=== PATIENT | male | born 1980 | race Caucasian/White ===

== ENCOUNTER 2018-03-07 10:10 | Emergency (ER) | payer BC ==
[~2018-03-07] VITALS: Ht 182.9 cm; Wt 93.2 kg
[2018-03-07] MEDS ORDERED: IBUP1TAB6 PO (10:18)
[2018-03-07] MEDS ORDERED: ACET500T15 PO (10:18)
[2018-03-07] MEDS ORDERED: KETOROLAC 60 MG/2 ML VIAL (J1885) As Ordered ONE (11:15)
[2018-03-07] MEDS ORDERED: KETOROLAC 60 MG/2 ML VIAL (J1885) IM ONE (11:15)
--- NOTE | 2018-03-07 11:19 | REP ---
Clinical: Midline back pain after heavy lifting . Technique: AP, lateral, bilateral oblique, and coned-down views. Findings: Alignment and lordosis is maintained. The vertebral bodies including transverse process and spinous processes are intact and normal. There is no evidence for acute fracture / compression injury or subluxation. No evidence for spondylolysis or spondylolisthesis. No significant degenerative change is noted. Impression: Normal age-appropriate lumbosacral spine radiograph series. Electronically Signed by Ritchie Pinzon MD 03/07/2018 11:10 A
[2018-03-07 11:39] VITALS: BP 135/76
[2018-03-07] MEDS ORDERED: ROBA500T PO (11:39)
== END 2018-03-07 11:47 | disposition home or self-care (01) ==
LOC: M ED 10:10
DX: M54.5 Low back pain (principal); X50.0XXA Overexertion from strenuous movement or load, initial encounter; Y92.9 Unspecified place or not applicable
CPT/HCPCS: 72110; 99283; J1885

== ENCOUNTER 2018-12-18 07:32 | Emergency (ER) | payer BC, OTHER ==
[~2018-12-18] VITALS: Ht 182.9 cm; Wt 89.5 kg
[~2018-12-18 07:32] MED LIST: ACET500T15 PO; IBUP1TAB6 PO; ROBA500T PO
[2018-12-18] MEDS ORDERED: NS 1,000 ML IV ONE (08:15)
[2018-12-18] MEDS ORDERED: KETOROLAC 30 MG/ML VIAL (J1885) IV ONE (08:15)
[2018-12-18] MEDS ORDERED: ONDANSETRON 4MG/2ML VIAL (J2405) IV ONE (08:15)
[2018-12-18 08:22] LABS: BASO # 0.1 10^3/uL (0.0-0.2); BASO % 0.9 % (0.0-1.0); EOS # 0.5 10^3/uL (0.0-0.5); EOS % 8.9 % (0.0-3.0); HEMATOCRIT 44.6 % (42.0-52.0); HEMOGLOBIN 15.7 g/dl (13.5-17.5); LYMPH # 1.8 10^3/uL (1.5-5.0); LYMPH % 33.1 % (24.0-44.0); MEAN CORPUSCULAR HEMOGLOBIN 32.5 pg (27.0-33.0); MEAN CORPUSCULAR HGB CONC 35.2 g/dl (32.0-36.5); MEAN CORPUSCULAR VOLUME 92.3 fl (80.0-96.0); MONO # 0.4 10^3/uL (0.0-0.8); MONO % 6.5 % (0.0-5.0); NEUTROPHILS # 2.7 10^3/uL (1.5-8.5); NEUTROPHILS % 50.4 % (36.0-66.0); PLATELET COUNT, AUTOMATED 203 10^3/uL (150-450); RED BLOOD COUNT 4.83 10^6/uL (4.30-6.10); WHITE BLOOD COUNT 5.4 10^3/uL (4.0-10.0)
[2018-12-18 08:48] LABS: ALBUMIN 3.9 GM/DL (3.2-5.2); ALT/SGPT 36 U/L (12-78); BILIRUBIN,DIRECT < 0.1 MG/DL (0.0-0.2); BILIRUBIN,TOTAL 0.3 MG/DL (0.2-1.0); BLOOD UREA NITROGEN 13 MG/DL (7-18); CALCIUM LEVEL 9.2 MG/DL (8.5-10.1); CARBON DIOXIDE LEVEL 27 MEQ/L (21-32); CHLORIDE LEVEL 110 MEQ/L (98-107); CREATININE FOR GFR 0.88 MG/DL (0.70-1.30); GLOMERULAR FILTRATION RATE > 60.0 (>60); GLUCOSE, FASTING 100 MG/DL (70-100); LIPASE 351 U/L (73-393); POTASSIUM SERUM 4.4 MEQ/L (3.5-5.1); SODIUM LEVEL 142 MEQ/L (136-145); TOTAL PROTEIN 6.9 GM/DL (6.4-8.2)
--- NOTE | 2018-12-18 08:53 | REP ---
CT abdomen and pelvis without IV or oral contrast: History: Left flank pain rule out urolithiasis. CT findings: Digital preliminary wildlife removal specialist radiograph is unremarkable. The lung bases are clear there is no evidence of pleural effusion or upper abdominal ascites. The liver and the spleen are normal in size homogeneous in texture. The gallbladder and the pancreas are unremarkable. No adrenal lesion is seen on either side. There is no evidence of hydronephrosis. Kidneys are morphologically intact. No intrarenal calculus is seen. No ureteral or bladder calculus is observed. There is some mild diverticulosis in the sigmoid colon without CT evidence of diverticulitis. Small and large intestinal bowel loops are otherwise unremarkable. Seminal vesicles, prostate, and urinary bladder appear normal. A normal appendix is visible in the right lower quadrant. Bone window settings show no bony destructive lesion. Impression: Unremarkable CT abdomen and pelvis. No urinary tract calculus or hydronephrosis seen. Normal appendix noted. Left colonic diverticulosis without evidence of diverticulitis. Electronically Signed by Cyrus Thornton MD 12/18/2018 09:45 A
[2018-12-18 09:55] VITALS: BP 112/79
== END 2018-12-18 09:57 | disposition home or self-care (01) ==
LOC: M ED 07:32
DX: R10.9 Unspecified abdominal pain (principal); Z87.442 Personal history of urinary calculi; F17.218 Nicotine dependence, cigarettes, with other nicotine-induced disorders; Z88.8 Allergy status to other drugs, medicaments and biological substances
CPT/HCPCS: 36415; 74176; 80048; 80076; 81001; 83690; 85025; 96374; 96375; 99284; J1885; J2405

== ENCOUNTER → 2019-01-15 | Outpatient (CLI) | payer OTHER ==
--- NOTE | 2019-01-15 16:55 | REP ---
Five views lumbar spine: 01/15/2019. Indication: Lumbar spine trauma. Comparison: 03/07/2018. Findings: There is no acute fracture, subluxation or dislocation. Disc space height is maintained throughout. Impression: There is no evidence of acute osseous lumbar spine injury. Electronically Signed by James Mckeon DO 01/15/2019 04:47 P
== END ==
LOC: M WUC 16:08
PROVIDERS: ATTEND Physician Assistant
DX: M54.41 Lumbago with sciatica, right side (principal)

== ENCOUNTER → 2019-03-26 | Outpatient (REF) | payer OTHER ==
[2019-03-26 14:19] LABS: BASO # 0.1 10^3/uL (0.0-0.2); BASO % 1.2 % (0.0-1.0); EOS # 0.3 10^3/uL (0.0-0.5); EOS % 5.2 % (0.0-3.0); HEMOGLOBIN 16.1 g/dl (13.5-17.5); LYMPH # 1.9 10^3/uL (1.5-5.0); LYMPH % 31.3 % (24.0-44.0); MEAN CORPUSCULAR HEMOGLOBIN 31.9 pg (27.0-33.0); MEAN CORPUSCULAR HGB CONC 34.3 g/dl (32.0-36.5); MEAN CORPUSCULAR VOLUME 93.3 fl (80.0-96.0); MONO # 0.4 10^3/uL (0.0-0.8); MONO % 6.7 % (0.0-5.0); NEUTROPHILS # 3.3 10^3/uL (1.5-8.5); NEUTROPHILS % 55.4 % (36.0-66.0); PLATELET COUNT, AUTOMATED 236 10^3/uL (150-450); RED BLOOD COUNT 5.04 10^6/uL (4.30-6.10)
[2019-03-26 14:34] LABS: ALBUMIN 4.4 GM/DL (3.2-5.2); ALT/SGPT 30 U/L (12-78); BILIRUBIN,TOTAL 0.4 MG/DL (0.2-1.0); BLOOD UREA NITROGEN 22 MG/DL (7-18); CALCIUM LEVEL 9.2 MG/DL (8.5-10.1); CARBON DIOXIDE LEVEL 28 MEQ/L (21-32); CHLORIDE LEVEL 107 MEQ/L (98-107); CHOLESTEROL LEVEL 207 MG/DL (<200); CHOLESTEROL RISK RATIO 4.928 (<5); CREATININE FOR GFR 0.88 MG/DL (0.70-1.30); FREE T4 0.78 NG/DL (0.76-1.46); GLOMERULAR FILTRATION RATE > 60.0 (>60); GLUCOSE, FASTING 78 MG/DL (70-100); HDL CHOLESTEROL 42 MG/DL (>40); LDL CHOLESTEROL 142 MG/DL (<100); NON-HDL-C 165 MG/DL; POTASSIUM SERUM 4.6 MEQ/L (3.5-5.1); SODIUM LEVEL 139 MEQ/L (136-145); THYROID STIMULATING HORMONE 0.448 uIU/ML (0.358-3.740); TOTAL PROTEIN 7.5 GM/DL (6.4-8.2); TRIGLYCERIDES LEVEL 115 MG/DL (<150)
[2019-03-26 14:36] LABS: TOTAL 25(OH) VITAMIN D 27.5 NG/ML (30.0-100.0)
== END ==
LOC: M SFHCSACK 08:37
PROVIDERS: ATTEND Physician Assistant
DX: Z13.21 Encounter for screening for nutritional disorder (principal); K04.7 Periapical abscess without sinus; Z83.438 Family history of other disorder of lipoprotein metabolism and other lipidemia; Z80.8 Family history of malignant neoplasm of other organs or systems

== ENCOUNTER → 2019-04-03 | Outpatient (CLI) | payer OTHER ==
--- NOTE | 2019-04-04 06:53 | REP ---
Clinical: Palpable mass. Technique: Real time barboza scale and color evaluation using linear high frequency transducer. Findings: Directed ultrasound examination along the posterior aspect of the left calf demonstrates a hypoechoic ovoid avascular lesion measuring 12 x 13 x 5 mm which is otherwise nonspecific in appearance. Lesion appears relatively benign and may reflect prominent lymph node or granuloma. Correlation with history of prior trauma or infectious process should be considered. Impression: Nonspecific ovoid hypoechoic lesion at the site of palpable mass. Electronically Signed by Ritchie Pinzon MD 04/04/2019 06:45 A
== END ==
LOC: M RAD 16:44
PROVIDERS: ATTEND Physician Assistant
DX: R22.42 Localized swelling, mass and lump, left lower limb (principal)

== ENCOUNTER 2019-07-23 11:44 | Emergency (ER) | payer OTHER ==
[~2019-07-23] VITALS: Ht 182.9 cm; Wt 88.7 kg
[~2019-07-23 11:44] MED LIST changes: -MELO15TA28; -VITA50005
[2019-07-23] MEDS ORDERED: MELO15TA28 (11:54)
[2019-07-23] MEDS ORDERED: VITA50005 (11:54)
[2019-07-23 14:06] VITALS: BP 129/99
--- NOTE | 2019-07-23 15:02 | REP ---
ULTRASOUND LEFT CALF, SOFT TISSUES: Real-time sonographic evaluation of left calf soft tissues performed. There is a superficial oval hypoechoic nodule present without significant internal vascularity with Doppler evaluation. It has increased in size since 04/03/2019. Current measurements are 2.2 x 1.2 x 1.9 cm. This could represent a complex cyst or solid nodule. Electronically Signed by Alex Leung MD 07/23/2019 07:29 P
--- NOTE | 2019-07-25 12:25 | ED PDOC ---
Post-Departure Follow-Up dr serrano faxed formal report of us extremity for fu Garret Kim MD July 25, 2019 12:25
== END 2019-07-23 14:07 | disposition home or self-care (01) ==
LOC: M ED 11:44
DX: L98.9 Disorder of the skin and subcutaneous tissue, unspecified (principal); R22.42 Localized swelling, mass and lump, left lower limb; M79.605 Pain in left leg; Z88.8 Allergy status to other drugs, medicaments and biological substances; F17.218 Nicotine dependence, cigarettes, with other nicotine-induced disorders

== ENCOUNTER → 2019-07-23 | Outpatient (REF) | payer OTHER ==
[~2019-07-23] MED LIST changes: +MELO15TA28; +VITA50005
== END ==
LOC: M LAB REF 17:02
PROVIDERS: ATTEND Dermatology
DX: L72.0 Epidermal cyst (principal)

== ENCOUNTER → 2020-08-14 | Outpatient (REF) | payer OTHER ==
[~2020-08-14] MED LIST changes: +MELO15TA28; +VITA50005
[2020-08-14 18:35] LABS: BASO # 0.1 10^3/uL (0.0-0.2); BASO % 0.7 % (0.0-1.0); EOS # 0.4 10^3/uL (0.0-0.5); HEMATOCRIT 45.8 % (42.0-52.0); HEMOGLOBIN 15.6 g/dl (13.5-17.5); LYMPH # 2.4 10^3/uL (1.5-5.0); LYMPH % 28.5 % (24.0-44.0); MEAN CORPUSCULAR HEMOGLOBIN 31.8 pg (27.0-33.0); MEAN CORPUSCULAR HGB CONC 34.1 g/dl (32.0-36.5); MEAN CORPUSCULAR VOLUME 93.3 fl (80.0-96.0); MONO # 0.6 10^3/uL (0.0-0.8); MONO % 6.9 % (2.0-8.0); NEUTROPHILS # 4.9 10^3/uL (1.5-8.5); NEUTROPHILS % 58.5 % (36.0-66.0); PLATELET COUNT, AUTOMATED 226 10^3/uL (150-450); RED BLOOD COUNT 4.91 10^6/uL (4.30-6.10); WHITE BLOOD COUNT 8.4 10^3/uL (4.0-10.0)
[2020-08-14 18:55] LABS: ALT/SGPT 52 U/L (12-78); BILIRUBIN,TOTAL 0.6 MG/DL (0.2-1.0); BLOOD UREA NITROGEN 16 MG/DL (7-18); CARBON DIOXIDE LEVEL 28 MEQ/L (21-32); CHLORIDE LEVEL 105 MEQ/L (98-107); CHOLESTEROL LEVEL 199 MG/DL (<200); CHOLESTEROL RISK RATIO 5.852 (<5); FREE T4 0.81 NG/DL (0.76-1.46); GLOMERULAR FILTRATION RATE > 60.0 (>60); GLUCOSE, FASTING 72 MG/DL (70-100); HDL CHOLESTEROL 34 MG/DL (>40); LDL CHOLESTEROL 99 MG/DL (<100); NON-HDL-C 165 MG/DL; POTASSIUM SERUM 4.1 MEQ/L (3.5-5.1); SODIUM LEVEL 141 MEQ/L (136-145); THYROID STIMULATING HORMONE 0.631 uIU/ML (0.358-3.740); TRIGLYCERIDES LEVEL 331 MG/DL (<150)
== END ==
LOC: M SFHCADAM 13:54
PROVIDERS: ATTEND Family Medicine
DX: K64.4 Residual hemorrhoidal skin tags (principal); E78.2 Mixed hyperlipidemia; R53.83 Other fatigue

== ENCOUNTER → 2020-08-14 | Outpatient (CLI) | payer OTHER ==
--- NOTE | 2020-08-15 04:18 | REP ---
INDICATION: SUPRAPATELLAR BURSITIS OF LEFT KNEE COMPARISON: None. TECHNIQUE: AP, lateral, bilateral oblique and sunrise views. FINDINGS: The osseous structures and joint spaces are intact and normal. There is no evidence for acute fracture or dislocation. No joint effusion is appreciated. Surrounding soft tissues are unremarkable. No subcutaneous emphysema or radiodense foreign body. IMPRESSION: Essentially normal age-appropriate examination. <Electronically signed by Ritchie Pinzon > 08/15/20 [id number]
== END ==
LOC: M ADAMS 14:00
PROVIDERS: ATTEND Family Medicine
DX: M70.52 Other bursitis of knee, left knee (principal)

== ENCOUNTER → 2020-10-25 | Outpatient (CLI) | payer OTHER ==
[~2020-10-25] MED LIST changes: +ERGO500029; -VITA50005
--- NOTE | 2020-10-27 09:36 | REP ---
INDICATION: LT KNEE DERANGEMENT. COMPARISON: None. TECHNIQUE: Sagittal spin-echo proton density, T2 STIR and T2 FLASH. Coronal spin-echo proton density and fat suppressed proton density. Axial fat suppressed proton density. FINDINGS: Minimal grade 2 signal changes present in the posterior horn of the medial meniscus. The anterior horn is within normal limits. The anterior and posterior horns of the lateral meniscus are within normal limits. The anterior and posterior cruciate ligaments are intact the quadriceps and patellar tendons are intact. The medial and lateral collateral ligaments are intact. The medial and lateral patellar retinacula are intact. The articular cartilages are within normal limits. There is no joint effusion. There is a tiny amount of fluid seen between the tendons of the medial head of the gastrocnemius muscle and the semimembranosus tendon. This measures 1.9 by 0.4 by 3 cm. The marrow signal is within normal limits. IMPRESSION: 1. There is a tiny Ramachandran's cyst as described above. 2. There is no evidence of acute internal derangement. Findings as described above. <Electronically signed by Rodney Denton > 10/27/20 [id number]
== END ==
LOC: M RAD 10:04
PROVIDERS: ATTEND Orthopaedic Surgery Adult Reconstructive Orthopaedic Surgery
DX: M23.92 Unspecified internal derangement of left knee (principal)

== ENCOUNTER 2020-11-25 08:11 | Emergency (ER) | payer OTHER ==
[~2020-11-25] VITALS: Ht 182.9 cm; Wt 88.6 kg
[2020-11-25 09:39] LABS: BASO # 0.1 10^3/uL (0.0-0.2); BASO % 0.8 % (0.0-1.0); EOS # 0.4 10^3/uL (0.0-0.5); EOS % 5.9 % (0.0-3.0); HEMATOCRIT 42.8 % (42.0-52.0); HEMOGLOBIN 14.9 g/dl (13.5-17.5); LYMPH # 2.3 10^3/uL (1.5-5.0); LYMPH % 34.4 % (24.0-44.0); MEAN CORPUSCULAR HEMOGLOBIN 32.2 pg (27.0-33.0); MEAN CORPUSCULAR HGB CONC 34.8 g/dl (32.0-36.5); MEAN CORPUSCULAR VOLUME 92.4 fl (80.0-96.0); MONO # 0.5 10^3/uL (0.0-0.8); MONO % 6.9 % (2.0-8.0); NEUTROPHILS # 3.4 10^3/uL (1.5-8.5); NEUTROPHILS % 51.7 % (36.0-66.0); PLATELET COUNT, AUTOMATED 181 10^3/uL (150-450); RED BLOOD COUNT 4.63 10^6/uL (4.30-6.10); WHITE BLOOD COUNT 6.6 10^3/uL (4.0-10.0)
[2020-11-25] MEDS ORDERED: BACL10TA2 PO (09:42)
[2020-11-25] MEDS ORDERED: NABU-71 PO (09:42)
[2020-11-25 10:17] LABS: BLOOD UREA NITROGEN 17 MG/DL (7-18); CARBON DIOXIDE LEVEL 29 MEQ/L (21-32); CHLORIDE LEVEL 107 MEQ/L (98-107); CREATININE FOR GFR 0.96 MG/DL (0.70-1.30); GLOMERULAR FILTRATION RATE > 60.0 (>60); GLUCOSE, FASTING 96 MG/DL (70-100); POTASSIUM SERUM 4.5 MEQ/L (3.5-5.1); SODIUM LEVEL 139 MEQ/L (136-145)
--- NOTE | 2020-11-25 13:03 | REP ---
INDICATION: low back pain, right radiculopathy urinary retention. COMPARISON: Comparison radiographs are from January 15, 2019. Comparison is made with CT images from 18 December 2018. TECHNIQUE: Sagittal and axial T1 and T2-weighted scans are acquired in the usual fashion with and without fat saturation. Sequences include spin echo, turbo spin-echo, and STIR imaging sequences. FINDINGS: There is straightening of the normal lumbar lordosis. There is no evidence of spondylolysis or spondylolisthesis. Cortical and medullary bone signal intensity is normal. No bony destructive lesion is seen. The tip of the conus medullaris is normal in position and appearance at T12. No extra vertebral abnormality is observed. Axial and sagittal images taken at L1-L2, L2-L3, and L3-L4 are unremarkable. No spinal stenosis or foraminal narrowing is seen. At L4-5, there is minimal central disc bulging. No spinal stenosis or foraminal narrowing is seen. Mild facet hypertrophy is present bilaterally at L4-5. At L5-S1, there is a moderate-sized right posterior focal disc protrusion which compresses the right ventral margin of the thecal sac. There is an elongate disc extrusion which extends between the thecal sac and the right S1 root displacing the right S1 root laterally and somewhat posteriorly no neural foraminal narrowing is seen. No overall spinal stenosis is noted... IMPRESSION: There is a focal disc protrusion on the right at L5-S1 with an elongate extruded fragment contacting and displacing the right S1 root as above. 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 Minimal disc bulging at L4-5 centrally. <Electronically signed by Michael Thornton > 11/25/20 1300
[2020-11-25] MEDS ORDERED: MEDR4PAK PO (14:04)
[2020-11-25 14:11] VITALS: BP 113/65
--- NOTE | 2020-11-26 12:17 | ED PDOC ---
Post-Departure Follow-Up dr carmen escalante and dr jo faxed formal report of [facility] ls spine for fu Garret Kim MD Nov 26, 2020 12:17
== END 2020-11-25 14:15 | disposition home or self-care (01) ==
LOC: M ED 08:11
DX: M51.26 Other intervertebral disc displacement, lumbar region (principal); M51.27 Other intervertebral disc displacement, lumbosacral region; M12.88 Other specific arthropathies, not elsewhere classified, other specified site; M54.16 Radiculopathy, lumbar region; G89.29 Other chronic pain; Z79.899 Other long term (current) drug therapy; Z88.8 Allergy status to other drugs, medicaments and biological substances

== ENCOUNTER 2023-01-15 11:19 | Emergency (ER) | payer OTHER ==
[~2023-01-15] VITALS: Ht 180.3 cm; Wt 92.4 kg
[~2023-01-15 11:19] MED LIST changes: +BACL10TA2 PO; +MEDR4PAK PO; +NABU-71 PO
[2023-01-15] MEDS ORDERED: BOOSTRIX VACCINE (TETANUS/DIPHTH/ACEL. PERTUSSIS) 0.5ML SYR IM ONE (12:15)
[2023-01-15] MEDS ORDERED: LIDOCAINE 2% MDV 20ML VIAL SC ONE (12:15)
[2023-01-15] MEDS ORDERED: CEPH500C PO (12:33)
[2023-01-15 12:49] VITALS: BP 129/85; TEMP 97.5; O2SAT 98
== END 2023-01-15 12:50 | disposition home or self-care (01) ==
LOC: M ED 11:19
DX: S61.411A Laceration without foreign body of right hand, initial encounter (principal); W25.XXXA Contact with sharp glass, initial encounter; F12.10 Cannabis abuse, uncomplicated; Z88.6 Allergy status to analgesic agent; Z87.442 Personal history of urinary calculi; Y99.0 Civilian activity done for income or pay; Z79.899 Other long term (current) drug therapy

== ENCOUNTER 2023-02-15 07:22 | Emergency (ER) | payer OTHER ==
[~2023-02-15] VITALS: Ht 182.9 cm; Wt 88.6 kg
[~2023-02-15 07:22] MED LIST changes: +CEPH500C PO
[2023-02-15] MEDS ORDERED: IBUP-1022 PO ×2 (07:36→10:50)
[2023-02-15] MEDS ORDERED: KETOROLAC 30 MG/ML 1ML VIAL IM ONE (08:55)
[2023-02-15] MEDS ORDERED: methocarbamoL 500 MG TAB PO ONE (08:55)
[2023-02-15 09:45] LABS: AMORPHOUS SEDIMENT SMALL (NEGATIVE); APPEARANCE, URINE CLOUDY (CLEAR); BACTERIA, URINE AUTO NEGATIVE (NEGATIVE); BILIRUBIN, URINE AUTO NEGATIVE (NEGATIVE); BLOOD, URINE BLOOD NEGATIVE (NEGATIVE); COLOR, URINE AMBER (YELLOW); GLUCOSE, URINE (UA) AUTO NEGATIVE (NEGATIVE); KETONE, URINE AUTO TRACE mg/dL (NEGATIVE); LEUKOCYTE ESTERASE, URINE AUTO NEGATIVE (NEGATIVE); MUCUS, URINE LARGE (NEGATIVE); NITRITE, URINE AUTO NEGATIVE (NEGATIVE); PROTEIN, URINE AUTO 2+ mg/dL (NEGATIVE); RBC, URINE AUTO 8 /HPF (0-3); SPECIFIC GRAVITY URINE AUTO 1.036 (1.002-1.035); SQUAMOUS EPITHELIAL CELL UR AU 0 /HPF (0-6); UROBILINOGEN, URINE AUTO 0.2 mg/dL (0.0-2.0); WBC, URINE AUTO 2 /HPF (0-3)
[2023-02-15 09:47] LABS: HEMATOCRIT 46.1 % (42.0-52.0); HEMOGLOBIN 16.4 g/dl (13.5-17.5); MEAN CORPUSCULAR HEMOGLOBIN 32.5 pg (27.0-33.0); MEAN CORPUSCULAR HGB CONC 35.6 g/dl (32.0-36.5); MEAN CORPUSCULAR VOLUME 91.5 fl (80.0-96.0); PLATELET COUNT, AUTOMATED 167 10^3/uL (150-450); RED BLOOD COUNT 5.04 10^6/uL (4.30-6.10); WHITE BLOOD COUNT 6.1 10^3/uL (4.0-10.0)
[2023-02-15] MEDS ORDERED: NS 1,000 ML IV ONE (10:15)
[2023-02-15] MEDS ORDERED: METH-1164 PO (10:50)
[2023-02-15] MEDS ORDERED: PRED20TA PO (10:50)
[2023-02-15 11:25] VITALS: BP 161/81; TEMP 97.7; O2SAT 96
== END 2023-02-15 11:27 | disposition home or self-care (01) ==
LOC: M ED 07:22
DX: U07.1 COVID-19 (principal); M54.31 Sciatica, right side; M54.50 Low back pain, unspecified; Z87.442 Personal history of urinary calculi; Z87.891 Personal history of nicotine dependence; Z88.6 Allergy status to analgesic agent
CPT/HCPCS: 74176; 80047; 81001; 85027; 87486; 87581; 87633; 87798; 96361; 96372; 99284; J1100; J1885

== ENCOUNTER 2023-02-24 09:33 | Emergency (ER) | payer OTHER ==
[~2023-02-24] VITALS: Ht 182.9 cm; Wt 91.8 kg
[~2023-02-24 09:33] MED LIST changes: +IBUP-1022 PO; +METH-1164 PO; +PRED20TA PO
[2023-02-24 09:34] VITALS: BP 136/97; TEMP 97.9; O2SAT 99
[2023-03-02] MEDS ORDERED: PRED20TA PO (01:31)
[2023-03-02] MEDS ORDERED: VALI2TAB PO (01:31)
== END 2023-02-24 11:15 | disposition left against medical advice (07) ==
LOC: M ED 09:33
DX: Z53.21 Procedure and treatment not carried out due to patient leaving prior to being seen by health care provider (principal)

== ENCOUNTER 2024-03-13 12:36 | Emergency (ER) | payer OTHER ==
[~2024-03-13] VITALS: Ht 182.9 cm; Wt 93.2 kg
[~2024-03-13 12:36] MED LIST changes: +VALI2TAB PO
[2024-03-13 12:38] VITALS: BP 125/80; TEMP 97.5; O2SAT 98
[2024-03-13] MEDS ORDERED: GABA-1172 (12:51)
== END 2024-03-13 15:55 | disposition left against medical advice (07) ==
LOC: M ED 12:36
DX: Z53.21 Procedure and treatment not carried out due to patient leaving prior to being seen by health care provider (principal)